=== PATIENT | female | born 1990 ===

== ENCOUNTER 2018-04-08 20:47 | Emergency (ER) | payer SELFPAY ==
--- NOTE | 2018-04-08 21:07 | C.PDOC ---
History Of Present Illness 27 y/o female presents to the ED complaining of right-sided lower toothache for the past week. Patient reports taking 400mg Motrin at home with temporary relief at 1pm. She states pain worsened today and has become unbearable. Reports the pain is so bad she vomited prior to arrival. Of note, patient is scheduled for a root canal of the affected tooth with her dentist tomorrow afternoon. She denies any nausea at present. No fever, chills, mouth swelling, dizziness, headache, or other complaints. Time Seen by Provider: 04/08/18 20:55 Chief Complaint (Nursing): Dental Pain History Per: Patient History/Exam Limitations: no limitations Onset/Duration Of Symptoms: Days Current Symptoms Are (Timing): Still Present Severity: Moderate Quality: Positive for: "Pain" Past Medical History Reviewed: Historical Data, Nursing Documentation, Vital Signs Vital Signs: Last Vital Signs Temp 98.9 F 04/08/18 20:58 Pulse 84 04/08/18 20:58 Resp 20 04/08/18 20:58 BP 122/80 04/08/18 20:58 Pulse Ox 100 04/08/18 20:58 - Medical History PMH: No Chronic Diseases Family History: States: Unknown Family Hx - Social History Hx Alcohol Use: Yes Hx Substance Use: Yes (CRATOM) - Immunization History Hx Tetanus Toxoid Vaccination: No Hx Influenza Vaccination: No Hx Pneumococcal Vaccination: No Review Of Systems Except As Marked, All Systems Reviewed And Found Negative. Constitutional: Negative for: Fever, Chills ENT: Positive for: Other (Right dental pain). Negative for: Ear Pain Cardiovascular: Negative for: Chest Pain, Palpitations Respiratory: Negative for: Cough, Shortness of Breath Gastrointestinal: Positive for: Vomiting. Negative for: Abdominal Pain Genitourinary: Negative for: Dysuria, Frequency Musculoskeletal: Negative for: Other (jaw pain) Skin: Negative for: Rash, Other (drainage from toothache site) Neurological: Negative for: Weakness, Numbness, Headache, Dizziness Physical Exam - Physical Exam Appears: Well, Non-toxic, No Acute Distress Skin: Warm, Dry Head: Atraumatic, Normacephalic Eye(s): bilateral: Normal Inspection, PERRL, EOMI Ear(s): Bilateral: Normal Nose: Normal Oral Mucosa: Moist Tongue: No Swelling Lips: No Swelling Teeth: Caries (right lower molars), Tender To Palpation (right lower molars), No Other (no abscess) Throat: Normal, No Erythema, No Exudate, No Drooling, No Mass Neck: Normal, Normal ROM, Supple Lymphatic: Normal Exam Cardiovascular: Rhythm Regular Respiratory: Normal Breath Sounds Extremity: Normal ROM Pulses: Left Radial: Normal, Right Radial: Normal Neurological/Psych: Oriented x3, Normal Speech, Normal Motor, Normal Sensation Gait: Steady ED Course And Treatment O2 Sat by Pulse Oximetry: 100 (RA) Pulse Ox Interpretation: Normal Medical Decision Making Medical Decision Making: Plan: - 975 mg PO Tylenol - 4 mg PO Zofran Patient report decreased pain and resolution of nausea after medications. Patient instructed to follow up with her dentist tomorrow without fail. Diagnostic testing results and plan of care discussed with patient. Strict instructions given regarding prescription use, importance of followup, and signs/symptoms to return to ER including fever, chills, worsening pain, or any other new/worsening symptoms. Pt verbalized understanding of discussion. Patient is A&Ox3, ambulating with steady gait, with vital signs stable for discharge. Disposition - Disposition Referrals: [facility] [Outside] Disposition: HOME/ ROUTINE Disposition Time: 22:30 Condition: IMPROVED Additional Instructions: Ibuprofen 800mg every 6 hours as needed for pain Tylenol 650mg every 4 hours as needed for pain Followup with dentist as scheduled Return to ER with any new/worsening symptoms Instructions: Dental Pain (DC) Forms: General Discharge Instructions, [facility] (Slovenian), Work Excuse - Clinical Impression Clinical Impression: Dental caries, Pain, dental - PA / [employer] / Resident Statement MD/DO has reviewed & agrees with the documentation as recorded. - Scribe Statement The provider has reviewed the documentation as recorded by the Chayaibjordan Mccabe All medical record entries made by the Kash were at my direction and personally dictated by me. I have reviewed the chart and agree that the record accurately reflects my personal performance of the history, physical exam, medical decision making, and the department course for this patient. I have also personally directed, reviewed, and agree with the discharge instructions and disposition.
[2018-04-08 22:47] VITALS: BP 118/69; PULSE 74; RESP 18; TEMP 98.2
[2018-04-08 22:48] VITALS: O2SAT 100
== END 2018-04-08 22:49 | disposition home or self-care (01) ==
LOC: C.ER 20:47
DX: K02.9 Dental caries, unspecified (principal); K08.89 Other specified disorders of teeth and supporting structures